=== PATIENT | female | born 1995 | race African-American/Black ===

== ENCOUNTER 2021-11-19 16:22 | Emergency (ER) | payer OTHER ==
[2021-11-19 16:49] VITALS: TEMP 98; BMI 28.3
[2021-11-19] MEDS ORDERED: SODIUM CHLORIDE 0.9% 500 ML INFUS.BAG IV ONE (17:34)
[2021-11-19 18:04] LABS: BASO % 0.6 % (0-2.0); EOS % 1.1 % (0-4.5); HEMATOCRIT 31.6 % (32.4-45.2); HEMOGLOBIN 10.4 GM/dL (10.7-15.3); LYMPH % 17.1 % (8-40); MCH 24.6 pg (25.7-33.7); MEAN CELL VOLUME 74.5 fl (80-96); MEAN PLT VOLUME 7.4 fl (7.5-11.1); MONO % 6.9 % (3.8-10.2); NEUT % 74.3 % (42.8-82.8); PLATELET COUNT 285 10^3/uL (134-434); RBC 4.24 M/mm3 (3.60-5.2); RDW 15.9 % (11.6-15.6); WHITE BLOOD COUNT 5.6 K/mm3 (4.0-10.0)
[2021-11-19 18:33] LABS: ALBUMIN 3.8 g/dl (3.4-5.0); BLOOD UREA NITROGEN 4.6 mg/dL (7-18); CALCIUM 9.5 mg/dL (8.5-10.1)
[2021-11-19 18:37] LABS: CREATININE 0.9 mg/dL (0.55-1.3)
[2021-11-19 18:39] LABS: BILIRUBIN,TOTAL 0.4 mg/dL (0.2-1); TOT PROT 7.3 g/dl (6.4-8.2)
[2021-11-19 21:30] VITALS: BP 110/71; PULSE 80
[2021-11-20 19:06] LABS: SARS-CoV-2 NAA Not Detected (Not Detected)
== END 2021-11-19 21:31 | disposition home or self-care (01) ==
LOC: JER 16:22
DX: R55 Syncope and collapse (principal)
CPT/HCPCS: 36415; 71045-TC-FY; 80053; 82962; 84484; 84703; 85025; 93005; 93010; 99285-25; C9803-CS; U0003; U0005

== ENCOUNTER 2021-12-29 19:36 | Emergency (ER) | payer OTHER ==
[2021-12-29 19:50] VITALS: BP 100/60; PULSE 88; TEMP 98.5; BMI 26.6
== END 2021-12-29 23:44 | disposition home or self-care (01) ==
LOC: JERFT 19:36 → JER 19:36 → JERFT 23:44
DX: M79.5 Residual foreign body in soft tissue (principal)
CPT/HCPCS: 73130-TC-RT-FY; 84703; 99284-25